=== PATIENT | female | born 2000 | race African-American/Black ===

== ENCOUNTER 2022-08-09 13:15 | Inpatient (IN) ==
[2022-08-09 14:58] LABS: Urine Appearance Clear; Urine Bilirubin Negative (Negative); Urine Blood Trace (Lysed) (Negative); Urine Color Straw; Urine Glucose Negative (Negative); Urine Ketones Negative (Negative); Urine Nitrite Negative (Negative); Urine Protein Negative (Negative); Urine Urobilinogen 0.2 (Negative) (Negative); Urine pH 6.5 (5.0-9.0)
[2022-08-09 15:03] LABS: Urine Bacteria Absent (Absent); Urine Red Blood Cell Trace(0-2/hpf) (Absent); Urine Squamous Epithelial Cell Present (Absent); Urine White Blood Cell Trace(0-5/hpf) (Absent)
[2022-08-09 15:09] LABS: Urine Benzodiazepine Screen Presumptive Positive (None Detect); Urine Cannabinoids Screen None Detected (None Detect); Urine Opiates Screen None Detected (None Detect)
[2022-08-09 15:21] LABS: Hematocrit 33 % (35-47); Hemoglobin 9.9 g/dL (12.0-16.0); Mean Corpuscular HGB Conc 30 g/dL (31-36); Mean Corpuscular Hemoglobin 22 pg (27-31); Mean Corpuscular Volume 71 fL (80-97); Mean Platelet Volume 8.6 fL (7.4-10.4); Platelet Count 248 10^3/uL (150-450); Red Blood Count 4.61 10^6 /uL (3.70-4.87); Red Cell Distribution Width 18 % (10-15); White Blood Count 6.1 10^3/uL (3.5-10.8)
[2022-08-09 15:59] LABS: ALT 6 U/L (7-52); AST 15 U/L (13-39); Albumin/Globulin Ratio 1.5 (1-3); Alcohol, S < 13 mg/dL (<13); Alkaline Phosphatase 38 U/L (35-149); Anion Gap 10 mmol/L (2-11); Blood Urea Nitrogen 4 mg/dL (6-24); CO2 Carbon Dioxide 22 mmol/L (22-32); Calcium 9.4 mg/dL (8.6-10.3); Chloride 107 mmol/L (101-111); Globulin 2.7 g/dL (2-4); Glucose 87 mg/dL (70-100); Potassium 3.9 mmol/L (3.5-5.0); Salicylate < 2.50 mg/dL (<30); Sodium 139 mmol/L (135-145); Total Protein 6.7 g/dL (6.4-8.9); eGFR CKD-EPI 112.1 (>60)
[2022-08-09 16:00] LABS: HCG Pregnancy < 0.60 mIU/mL
[2022-08-09 16:14] LABS: Acetaminophen 110 mcg/mL; TSH Ultra Thyroid Stim Horm 1.78 mcIU/mL (0.34-5.60)
[2022-08-09 16:50] LABS: ABS Eosinophils 0.3 10^3/ul (0-0.6); ABS Monocytes 0.4 10^3/ul (0-0.8); ABS Neutrophils 3.4 10^3/ul (1.5-7.7); Lymphocyte % 32.8 %; Nucleated Red Blood Cells % 0.1
[2022-08-09 18:42] LABS: Hypochromasia 2+
[2022-08-09 18:43] LABS: Anisocytosis 1+; Microcytosis 2+
[2022-08-10] MEDS ORDERED: Al Hydrox/Mg Hydrox/Simet LIQ 30 ML UDC PO PRN (00:51)
[2022-08-10] MEDS: Vitamin THERAPEUTIC TAB PO SCH (09:29)
[2022-08-10] MEDS: SRONYX PO SCH ×2 (11:55→20:21)
[2022-08-10] MEDS: Triamcinolone 0.025% OINT 15 GM TUBE TOPICAL SCH ×2 (14:01→20:21)
[2022-08-11 07:56] LABS: HDL Cholesterol 53.9 mg/dL
[2022-08-11 08:52] VITALS: BP 102/61
[2022-08-11] MEDS: Vitamin THERAPEUTIC TAB PO SCH (09:08)
[2022-08-11] MEDS: Triamcinolone 0.025% OINT 15 GM TUBE TOPICAL SCH (09:09)
[2022-08-12] MEDS ORDERED: Influenza vaccine *QUAD* *2022-23* 0.5 ML SYRINGE IM ONE (09:00)
== END 2022-08-11 13:04 | disposition home or self-care (01) | DRG 885 ==
LOC: ED 13:15 → BSU 23:11
PROVIDERS: ADMIT Psychiatry & Neurology Psychiatry; ATTEND Psychiatry & Neurology Psychiatry

== ENCOUNTER 2023-08-05 14:50 | Inpatient (IN) ==
[2023-08-05 16:31] LABS: Hematocrit 33.3 % (35-45); Hemoglobin 10.7 g/dL (11.5-14.3); Mean Corpuscular Hemoglobin 22.8 pg (27-33); Mean Corpuscular Hgb Conc 32.1 g/dL (31-36); Mean Corpuscular Volume 70.8 fL (80-97); Platelet Count 291 10^3/uL (150-450); Red Cell Distribution Width 19.6 % (12-17); White Blood Count 10.5 10^3/uL (3.8-11.8)
[2023-08-05 16:35] LABS: Urine Appearance Cloudy; Urine Bilirubin Negative (Negative); Urine Blood Negative (Negative); Urine Color Yellow; Urine Glucose Negative (Negative); Urine Ketones Negative (Negative); Urine Nitrite Negative (Negative); Urine Protein Negative (Negative); Urine Specific Gravity 1.005 (1.002-1.030); Urine Urobilinogen Negative (Negative)
[2023-08-05 16:41] LABS: Albumin 4.5 g/dL (3.2-5.2); Anion Gap 10 mmol/L (2-16); CO2 Carbon Dioxide 25 mmol/L (22-32); Calcium 9.5 mg/dL (8.6-10.3); Chloride 102 mmol/L (101-111); Sodium 137 mmol/L (135-145)
[2023-08-05 16:47] LABS: ABS Eosinophils 0.4 10^3/uL (0.0-0.5); ABS Lymphocytes 2.6 10^3/uL (1.0-4.8); ABS Monocytes 0.6 10^3/uL (0.0-0.9); ABS Neutrophils 6.9 10^3/uL (1.5-7.6); ABS Nucleated RBC 0.01 10^3/ul; Eosinophil % 3.9 %; Lymphocyte % 24.9 %; Microcytosis 2+
[2023-08-05 16:47] LABS: ALT 19 U/L (7-52); AST 27 U/L (13-39); Albumin/Globulin Ratio 1.3 (1-3); Alkaline Phosphatase 57 U/L (35-149); Blood Urea Nitrogen 9 mg/dL (6-24); Creatinine, Serum 0.93 mg/dL (0.51-0.95); Globulin 3.5 g/dL (2-4); Glucose 78 mg/dL (70-100); eGFR CKD-EPI 90.2 (>60)
[2023-08-05 16:48] LABS: Anisocytosis 2+; Hypochromasia 1+; Urine Benzodiazepine Screen None Detected (None Detect); Urine Cannabinoids Screen Presumptive Positive (None Detect); Urine Opiates Screen None Detected (None Detect)
[2023-08-05 16:51] LABS: HCG Pregnancy < 0.60 mIU/mL
[2023-08-05 17:16] LABS: Acetaminophen < 15 mcg/mL; Alcohol, S < 13 mg/dL (<13); Salicylate < 2.50 mg/dL (<30)
[2023-08-05 17:29] LABS: TSH Ultra Thyroid Stim Horm 2.22 mcIU/mL (0.34-5.60)
[2023-08-05] MEDS ORDERED: Al Hydrox/Mg Hydrox/Simet LIQ 30 ML UDC PO PRN (22:36)
[2023-08-06] MEDS: Vitamin THERAPEUTIC TAB PO SCH (08:40)
[2023-08-07] MEDS: Vitamin THERAPEUTIC TAB PO SCH (14:28)
[2023-08-08] MEDS: Vitamin THERAPEUTIC TAB PO SCH (07:51)
[2023-08-09] MEDS: Vitamin THERAPEUTIC TAB PO SCH ×2 (09:57→09:58)
[2023-08-09] MEDS ORDERED: Ondansetron ODT 4 mg TAB 4 MG TAB SL PRN (14:03)
[2023-08-09] MEDS ORDERED: TRIAMCINOLONE 0.025% TOPICAL PRN (23:43)
[2023-08-10 13:20] VITALS: BP 107/66
== END 2023-08-11 16:35 | disposition home or self-care (01) | DRG 885 ==
LOC: ED 14:50 → EDHOLD 22:36 → BSU 23:00
PROVIDERS: ADMIT Psychiatry & Neurology Psychiatry; ATTEND Psychiatry & Neurology Psychiatry